=== PATIENT | female | born 1960 | race Caucasian/White ===

== ENCOUNTER 2019-03-02 13:29 | Outpatient (CLI) | payer OTHER ==
--- NOTE | 2019-03-09 08:18 | Mammography Report ---
Reason: SCREENING MAMMO Procedure Date: 03/02/2019 Accession Number: [id number] / [id number] Procedure: MGS - Screening Mammo Dig Bilat CPT Code: FULL RESULT: EXAM: Screening Mammo Dig Bilat DATE: 03/02/2019 2:17 PM CLINICAL HISTORY: Screening encounter. No reported risk factors. Bilateral breast augmentation in 2002 status post removal of implants in 2012. TECHNIQUE: (B) - Bilateral CC, laterally exaggerated CC, MLO views were obtained. COMPARISON: 03/15/2015 through 11/14/2012. PARENCHYMAL PATTERN: (VD) - The breast(s) demonstrate(s) extremely dense parenchyma, limiting the sensitivity of mammography. FINDINGS: There are coarse typically benign calcifications. Silicone granuloma in the left breast are stable as visualized. There are no suspicious masses, calcifications, or areas of distortion. IMPRESSION: Benign findings. BI-RADS category 2. RECOMMENDATION: (ANNUAL) - Recommend routine annual screening mammography. BI-RADS CATEGORY: (2) - Benign Findings. STANDARD QUALIFYING STATEMENTS: 1. This examination was not reviewed with the aid of Computer-Aided Detection (CAD). 2. A negative or benign imaging report should not preclude biopsy if clinically suspicious findings are present. 3. Dense breasts may obscure an underlying neoplasm. 4. This examination was reviewed without the aid of 3D breast imaging (tomosynthesis).
== END 2019-03-02 13:30 | disposition home or self-care (01) ==
LOC: DI.S 13:29
DX: Z12.31 Encounter for screening mammogram for malignant neoplasm of breast (principal)
CPT/HCPCS: 77067

== ENCOUNTER 2022-05-28 14:58 | Outpatient (CLI) | payer OTHER ==
--- NOTE | 2022-05-29 11:31 | Mammography Report ---
BILATERAL DIGITAL SCREENING MAMMOGRAM 3D/2D WITH EXAGGERATED CC: 05/28/2022 CLINICAL: Routine screening. Comparison is made to exams dated: 03/02/2019 mammogram - [facility] and 03/15/2015 m ammogram - [facility]. Both breasts are extremely dense, which lowers the sensitivity of mammography (category d />75% gland ular tissue). There is a new 1.3 cm oval mass with a circumscribed margin in the right breast at 6 o'clock posterio r depth. No other significant masses, calcifications, or other findings are seen in either breast. IMPRESSION: INCOMPLETE: NEEDS ADDITIONAL IMAGING EVALUATION The new 1.3 cm oval mass in the right breast resembles a cyst and is indeterminate. Additional views with possible ultrasound are recommended. Based on the Tyrer Cuzick model (a risk assessment model) the patients lifetime risk is 13.4% and he r 10 year risk is 5.5%. According to the ACR, ACS, and NCCN guidelines, an annual breast MRI exam dena ng with mammogram is recommended if the patients lifetime risk is 20% or greater. This exam was interpreted at Station ID: [id number]. NOTE: For mammograms, a report in lay terms will be sent to the patient. Approximately 15% of breast malignancies will not be visualized mammographically. In the management of a palpable breast mass, a negative mammogram must not discourage biopsy of a clinically suspicious lesion. Electronically Signed By: Dinesh Garcia M.D. slc/:05/29/2022 09:07:29 ACR BI-RADS Category 0: Incomplete 3340F PARENCHYMAL PATTERN: (VD) - The breast(s) demonstrate(s) extremely dense parenchyma, limiting the sen sitivity of mammography. BI-RADS CATEGORY: (0) - 0 Mammo and [place] [id number] Immediate follow-up LATERALITY: (B)
== END 2022-05-28 14:59 | disposition home or self-care (01) ==
LOC: DI.S 14:58
DX: Z12.31 Encounter for screening mammogram for malignant neoplasm of breast (principal); N63.15 Unspecified lump in the right breast, overlapping quadrants

== ENCOUNTER 2022-06-18 10:37 | Outpatient (CLI) | payer OTHER ==
--- NOTE | 2022-06-19 12:11 | Mammography Report ---
UNILATERAL RIGHT DIGITAL DIAGNOSTIC MAMMOGRAM 3D/2D: 06/18/2022 CLINICAL: Patient returns today to evaluate a focal oval mass in the right breast. Comparison is made to exams dated: 05/28/2022 mammogram, 03/02/2019 mammogram - [facility], and 03/15/2015 mammogram - [employer] [facility]. The right breast is extremely dense, which lowers the sensitivity of mammography (category d />75% g landular tissue). There is a round mass in the right breast at 6 o'clock middle depth. This is seen in additional view s. No other significant masses or calcifications are seen in the breast. IMPRESSION: INCOMPLETE: NEEDS ADDITIONAL IMAGING EVALUATION The round mass in the right breast is indeterminate. A targeted ultrasound of the right breast is re commended and will be performed immediately following this exam. Based on the Tyrer Cuzick model (a risk assessment model) the patients lifetime risk is 13.4% and he r 10 year risk is 5.5%. According to the ACR, ACS, and NCCN guidelines, an annual breast MRI exam dena ng with mammogram is recommended if the patients lifetime risk is 20% or greater. This exam was interpreted at Station ID: [id number]. NOTE: For mammograms, a report in lay terms will be sent to the patient. Approximately 15% of breast malignancies will not be visualized mammographically. In the management of a palpable breast mass, a negative mammogram must not discourage biopsy of a clinically suspicious lesion. Electronically Signed By: Sandra Hammer M.D. lk/:06/18/2022 11:21:41 ACR BI-RADS Category 0: Incomplete 3340F PARENCHYMAL PATTERN: (VD) - The breast(s) demonstrate(s) extremely dense parenchyma, limiting the sen sitivity of mammography. BI-RADS CATEGORY: (0) - 0 Ultrasound [id number] Immediate follow-up LATERALITY: (B)
--- NOTE | 2022-06-19 12:11 | Ultrasound Report ---
LIMITED ULTRASOUND OF RIGHT BREAST: 06/18/2022 CLINICAL: Patient returns today to evaluate a focal asymmetry in the right breast. Comparison is made to exams dated: 06/18/2022 mammogram, 05/28/2022 mammogram, 03/02/2019 mammogram - [facility], and 03/15/2015 mammogram - [facility]. Color flow ultrasound of the right breast 6 o'clock region was performed on the areas of interest. G ray scale images of the real-time examination were reviewed. There is an oval cyst in the right breast at 6 o'clock middle depth. This oval cyst is anechoic with posterior acoustic enhancement. This correlates with mammography findings. IMPRESSION: BENIGN There is no sonographic evidence of malignancy. The oval cyst in the right breast is consistent with a simple cyst and is benign. Return to annual mammogram screening schedule is recommended. This exam was interpreted at Station ID: [id number]. Electronically Signed By: Sandra Hammer M.D. lk/:06/18/2022 11:38:30 Ultrasound BI-RADS: 2 Benign BI-RADS CATEGORY: (2) - 2 Mammogram [id number] return to screening LATERALITY: (B)
== END 2022-06-18 10:38 | disposition home or self-care (01) ==
LOC: DI 10:37
PROVIDERS: ATTEND Family Medicine
DX: N60.01 Solitary cyst of right breast (principal)

== ENCOUNTER 2022-11-22 17:03 | Outpatient (CLI) | payer BC, OTHER ==
--- NOTE | 2022-11-23 08:58 | XRAY Report ---
PROCEDURE: Foot 3 View LT INDICATIONS: LT FOOT PAIN TECHNIQUE: 3 views of the foot were acquired. COMPARISON: None FINDINGS: Bones: No fractures or dislocations. No suspicious bony lesions. Hallux valgus. Plantar calcaneal e nthesophyte. Soft tissues: No tibiotalar joint effusion. Achilles tendon appears normal. IMPRESSION: 1.Hallux valgus. 2.Plantar calcaneal enthesophyte. Reviewed by: Todd Hobbs on 11/23/2022 8:57 AM PDT Approved by: Todd Hobbs on 11/23/2022 8:57 AM PDT Station ID: [id number]
== END 2022-11-22 17:04 | disposition home or self-care (01) ==
LOC: DI 17:03
PROVIDERS: ATTEND Podiatrist
DX: M20.12 Hallux valgus (acquired), left foot (principal); M77.32 Calcaneal spur, left foot